=== PATIENT | female | born 1935 | race Caucasian/White ===

== ENCOUNTER 2020-08-06 15:41 | Outpatient (REF) | payer MEDICARE, SELFPAY | END 2020-08-06 15:42 | disposition home or self-care (01) | LOC: HO.LAB 15:41 | PROVIDERS: Visit Provider Internal Medicine | DX: R30.0 Dysuria (principal) | CPT/HCPCS: 87086 ==

== ENCOUNTER 2020-08-11 12:01 | Outpatient (REF) | payer MEDICARE, SELFPAY ==
[2020-08-11 14:04] LABS: MANUAL DIFF FLAG NO
[2020-08-11 14:10] LABS: Basophils Percent Auto 0.4 % (0-2); Eosinophils Absolute Auto 0.1 X10*3/uL (0.0-0.4); Eosinophils Percent Auto 1.5 % (0-4); Hematocrit 38.2 % (37-47); Hemoglobin 12.5 g/dl (12.0-16.0); Imm Gran Abs Auto 0.01 X10*3/uL (0.00-0.03); Imm Gran Pct Auto 0.2 % (0.0-0.4); Lymphocytes Absolute Auto 1.2 X10*3/uL (1.2-4.9); Lymphocytes Percent Auto 26.7 % (20-40); Mean Corpuscular HGB Conc 32.7 g/dl (31.0-35.0); Mean Corpuscular Hemoglobin 29.7 pg (27.0-33.0); Mean Corpuscular Volume 90.7 fL (80-98); Mean Platelet Volume 10.2 fL (9.4-12.3); Monocytes Absolute Auto 0.4 X10*3/uL (0.1-1.2); Monocytes Percent Auto 8.9 % (2-11); Neutrophils Absolute Auto 2.9 X10*3/uL (2.0-8.3); Neutrophils Percent Auto 62.3 % (45-73); Platelet Count 217 X10*3/uL (160-400); Red Blood Count 4.21 X10*6/uL (4.20-5.50); Red Cell Distribution Width 12.7 % (11.0-16.0); White Blood Count 4.6 X10*3/uL (4.8-10.8)
[2020-08-11 14:38] LABS: Alanine Aminotransferase 11 U/L (0-31); Albumin Level 4.1 g/dL (3.5-5.0); Alkaline Phosphatase 72 U/L (39-117); Anion Gap 11 (12-20); Aspartate Amino Transferase 17 U/L (5-31); Bilirubin Total 0.5 mg/dL (0.0-1.0); Blood Urea Nitrogen 11 mg/dL (9-16); Calcium 8.5 mg/dL (8.4-10.2); Carbon Dioxide 27 mmol/L (22-29); Chloride 110 mmol/L (96-108); Estimated Glomerular Filt Rate > 60; Glucose Random 78 mg/dL (60-115); Potassium 4.3 mmol/L (3.3-5.1); Sodium 144 mmol/L (135-145); Total Protein 6.8 g/dL (6.5-8.0)
[2020-08-11 15:00] LABS: TSH reflex Free T4 1.46 uIU/mL (0.32-4.0); Vitamin D 25-OH Total 58.3 ng/mL (>30)
[2020-08-13 21:26] LABS: Folate > 20.0 ng/mL (> or = 4.0); Vitamin B12 414 pg/mL (200-900)
== END 2020-08-11 12:02 | disposition home or self-care (01) ==
LOC: HO.HMGCLDS 12:01
PROVIDERS: PCP Internal Medicine; Visit Provider Internal Medicine
DX: M81.0 Age-related osteoporosis without current pathological fracture (principal); M51.36 Other intervertebral disc degeneration, lumbar region; E55.9 Vitamin D deficiency, unspecified; E51.9 Thiamine deficiency, unspecified; E53.8 Deficiency of other specified B group vitamins; F03.91 Unspecified dementia, unspecified severity, with behavioral disturbance
CPT/HCPCS: 36415; 80053; 82306; 82607; 82746; 84443; 85025

== ENCOUNTER 2020-09-02 21:03 | Emergency (ER) | payer MEDICARE, SELFPAY ==
--- NOTE | 2020-09-02 21:12 | PC.NURSE ---
PATIENT'S SON MARÍA KANG CALLED PRIOR TO PATIENT ARRIVAL TO LEAVE CONTACT NUMBERS. AND
[2020-09-02 21:18] VITALS: BP 134/80; PULSE 85; RESP 16; TEMP 36.4; O2SAT 94; BMI 18.6
[2020-09-02 22:00] VITALS: BP 144/71; PULSE 84; RESP 16; TEMP 37.2; O2SAT 98
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
[2020-09-02 22:33] LABS: MANUAL DIFF FLAG NO
[2020-09-02 22:34] LABS: Basophils Percent Auto 0.3 % (0-2); Eosinophils Absolute Auto 0.1 X10*3/uL (0.0-0.4); Eosinophils Percent Auto 1.1 % (0-4); Glucose Urine UA NEG (NEG); Hematocrit 38.1 % (37-47); Hemoglobin 12.6 g/dl (12.0-16.0); Imm Gran Abs Auto 0.02 X10*3/uL (0.00-0.03); Imm Gran Pct Auto 0.3 % (0.0-0.4); Leukocyte Esterase Urine 3+ (NEG); Lymphocytes Absolute Auto 1.3 X10*3/uL (1.2-4.9); Lymphocytes Percent Auto 20.6 % (20-40); Mean Corpuscular HGB Conc 33.1 g/dl (31.0-35.0); Mean Corpuscular Volume 90.7 fL (80-98); Mean Platelet Volume 9.9 fL (9.4-12.3); Monocytes Absolute Auto 0.6 X10*3/uL (0.1-1.2); Monocytes Percent Auto 9.7 % (2-11); Neutrophils Absolute Auto 4.3 X10*3/uL (2.0-8.3); Nitrite Urine POS (NEG); Platelet Count 186 X10*3/uL (160-400); Red Cell Distribution Width 12.5 % (11.0-16.0); Specific Gravity - Urine 1.015 (1.005-1.025); UACC Culture Trigger YES; Urine Blood 1+ (NEG); Urine Ketones 5 MG/DL (NEG); Urine Protein TRACE MG/DL (NEG-TRACE); White Blood Count 6.3 X10*3/uL (4.8-10.8)
[2020-09-02 22:35] LABS: Appearance Urine CLOUDY; Color Urine YELLOW
[2020-09-02 22:46] LABS: Bacteria Urine 2+ /LPF; Squamous Epithelial Cell Urine TRACE /LPF; WBC Urine TNTC /HPF (0-4)
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
[2020-09-02 23:04] LABS: Anion Gap 12 (12-20); Blood Urea Nitrogen 17 mg/dL (9-16); Calcium 8.8 mg/dL (8.4-10.2); Carbon Dioxide 28 mmol/L (22-29); Chloride 106 mmol/L (96-108); Creatinine Clr Calc Pharmacy 39.3; Estimated Glomerular Filt Rate 58; Glucose Random 106 mg/dL (60-115); Potassium 4.2 mmol/L (3.3-5.1); Sodium 142 mmol/L (135-145)
--- NOTE | 2020-09-02 23:15 | MHC.CM.ED ---
Pt family and facility would like pt to stay overnight and make a plan for pt to return to [facility] in the am. Family can be present then to aide in the transition. Dr. Sierra aware. Will order po antibiotics for UTI. Pt to remain overnight. Will d/c to [facility] in the am. Pt aware. CM to monitor for d/c needs.
--- NOTE | 2020-09-02 23:25 | PC.NURSE ---
md does not want lactic or cultures drawn, pt does not have fever/tachycardia/elevated wbc.
[2020-09-02] MEDS: cefTRIAXone sodium 1 GM in 0.9 % Sodium Chloride 50 ML IV (23:41)
--- NOTE | 2020-09-03 00:32 | MHC.CARE ---
CARE Team is consulted for evaluation after increased aggression and confusion at [facility], where pt resides on a locked dementia unit. CARE Team works in collaboration with Suzan RN from case management who has already spoken to facility and pt's son/HCP Alok. Prior to crisis assessment being initiated, CARE Team is informed by Dr. Sierra that pt has a UTI. CARE Team recommends that pt be fully treated for UTI before IPLOC is considered. Pts are typically not considered for [facility] psych placement or assessed for level of care prior to UTI being treated. Dr. Sierra agrees that pt should be d/c back to locked facility and treated for UTI. Dr. Sierra would like for pt to be d/c tonight. CARE Team speaks with Janice, enterprise resource planning consultant nurse from [facility], who is not in support of pt d/c tonight, as she requests time to coordinate a plan w/ pt's family, as pt has historically not been medication compliant and may need added supports. Janice does agree to have pt return tomorrow. CARE Team reaches out to son, Alok, who is happy to support pt's transition back to longterm, however, also requests that this happen in the morning. This is communicated to Suzan from and Dr. Sierra. Plan is for pt to remain in the ED tonight and case management to coordinate d/c back to SNF in the morning.
--- NOTE | 2020-09-03 01:43 | PC.NURSE ---
PT AMBULATORY TO BATHROOM WITH STEADY GAIT TWICE TONIGHT. PT CALM AND COOPERATIVE.
--- NOTE | 2020-09-03 03:43 | PC.NURSE ---
PLAN IS TO SEND PT BACK TO THE [facility] IN MORNING BY EMS. PT NEEDS ORAL ANTIBIOTICS FOR UTI.
[2020-09-03 04:31] VITALS: BP 121/65; PULSE 72; RESP 16; O2SAT 97
--- NOTE | 2020-09-03 08:06 | PC.NURSE ---
BRENDA NURSE AT [facility],
--- NOTE | 2020-09-03 08:18 | MHC.CM.ED ---
Patient remains in ER. Spoke with Janice at the [facility] telephone at [phone]. Patient can return to the facility if the son helps with transition and helps administer morning medication at the facility. Spoke with Alok via telephone at [phone]. He is agreeable to above plan and will be in the ER at 9am to pick remover his mother. Janice aware. Patient, Tanya THEODORE and Jamel PINA aware. Continue to monitor for d/c needs.
== END 2020-09-03 09:30 | disposition home or self-care (01) ==
PROVIDERS: Emergency Provider Emergency Medicine Emergency Medical Services; PCP Internal Medicine
DX: F03.90 Unspecified dementia, unspecified severity, without behavioral disturbance, psychotic disturbance, mood disturbance, and anxiety (principal); N39.0 Urinary tract infection, site not specified; Z87.891 Personal history of nicotine dependence; Z79.899 Other long term (current) drug therapy
CPT/HCPCS: 36415; 80048; 81001; 81003; 85025; 87086; 87088; 87186; 96360; 96361; 99284; J0696

== ENCOUNTER 2020-09-17 | Outpatient (REF) | payer MEDICARE, SELFPAY ==
[2020-09-18 14:10] LABS: Glucose Urine UA NEG (NEG); Leukocyte Esterase Urine NEG (NEG); Nitrite Urine NEG (NEG); Urine Blood NEG (NEG); Urine Ketones NEG (NEG); Urine Protein NEG (NEG-TRACE)
[2020-09-18 14:13] LABS: Appearance Urine CLEAR; Color Urine YELLOW
== END 2020-09-17 00:01 | disposition home or self-care (01) ==
LOC: HO.LNP
PROVIDERS: Visit Provider Internal Medicine
DX: R30.0 Dysuria (principal); Z87.440 Personal history of urinary (tract) infections
CPT/HCPCS: 81003

== ENCOUNTER 2020-09-18 10:48 | Outpatient (REF) | payer MEDICARE, SELFPAY | END 2020-09-18 10:49 | disposition home or self-care (01) | LOC: HO.HMGCLNP 10:48 | PROVIDERS: Visit Provider Internal Medicine | DX: Z13.89 Encounter for screening for other disorder (principal) ==

== ENCOUNTER 2020-10-26 18:12 | Emergency (ER) | payer MEDICARE, SELFPAY ==
[2020-10-26 18:23] VITALS: BP 130/90; PULSE 74; RESP 14; TEMP 36.4; O2SAT 97; BMI 16.5
--- NOTE | 2020-10-26 18:40 | ED_ITS ---
HPI - Fall General Chief Complaint: Fall Stated Complaint: DEMENTIA FALL Time Seen by Provider: 10/26/20 18:40 Source: patient and RN notes reviewed Mode of arrival: EMS History of Present Illness HPI Narrative: Patient with history of dementia came from assisted living place after mechanical fall unwitnessed patient said that she was walking very fast and fell no significant injuries able to ambulate denies any head injury alert oriented times 2-3 MD complaint: fall Related Data Home Medications Medication Instructions Recorded Confirmed alendronate 70 mg tablet 70 mg PO TH 04/20/20 09/09/20 cholecalciferol (vitamin D3) 1 cap PO DAILY 09/03/20 09/09/20 divalproex 125 mg tablet,delayed 125 mg PO BID tab 09/09/20 09/09/20 release lactobacillus combination no.8 3 3,000 mmu cells PO DAILY 09/09/20 09/09/20 billion cell capsule Previous Rx's Medication Instructions Recorded famotidine 40 mg tablet 40 mg PO DAILY 30 Days #30 tab 04/21/20 multivitamin 1 tab PO DAILY #30 tab 07/21/20 memantine 10 mg tablet 10 mg PO BID #180 tab 08/06/20 oxybutynin chloride 5 mg tablet 5 mg PO DAILY #30 tab 08/31/20 Allergies Allergy/AdvReac Type Severity Reaction Status Date / Time erythromycin base AdvReac Intermediate STOMACH Verified 04/21/20 14:59 [ERYTHROMYCIN BASE] UPSET Sulfa (Sulfonamide AdvReac Intermediate STOMACH Verified 04/21/20 14:59 Antibiotics) UPSET, GI [SULFA (SULFONAMIDE upset ANTIBIOTICS)] amoxicillin [AMOXICILLIN] AdvReac Unknown UNKNOWN, Verified 04/21/20 14:59 Nausea Review of Systems Review of Systems: Constitutional : No Weight loss, No Fever, No Chills ENT/Mouth : No sore throat, No Rhinorrhea Eyes: No Eye Pain, No Swelling Cardiovascular : No Chest Pain, no palpitations Respiratory : No Cough, No Sputum, no shortness of breath Gastrointestinal : no Nausea, No Vomiting, No Diarrhea, No abdominal Pain, no black stools Genitourinary : No Dysuria, No Urinary Frequency Musculoskeletal : No joint pain, No Myalgias, No Joint Swelling Skin : No Skin Lesions, No rash Neuro : No Weakness, No Numbness, No Dizziness, No Headache Psych : No Anxiety/Panic, No Depression Heme/Lymph: No Bruising, No Lymphadenopathy Endocrine : No Polyuria, No Polydipsia All other systems reviewed and are negative [facility] Past Medical History Medical History Chorea Dementia Dementia with behavioral disturbance Dysuria Heartburn symptom Hx of ovarian cancer Immunization refused Lumbar degenerative disc disease Osteoporosis Urinary incontinence Vitamin B1 deficiency Vitamin B12 deficiency Vitamin D deficiency Surgical History H/O partial thyroidectomy Hx of hysterectomy Family History Family History Brother Cancer of bone Social History Social History Alcohol intake: never Smoking Status: Former smoker Use of substances other than those prescribed or required for medical reasons: No Advance Directives: No Advance Directives Information Provided: Yes Physical Exam Vital Signs: Vital Signs: Last Vital Signs Temp 99.2 F 10/26/20 18:57 Pulse 96 10/26/20 18:57 Resp 18 10/26/20 18:57 BP 144/105 H 10/26/20 18:57 Pulse Ox 95 10/26/20 18:57 Body Mass Index 16.5 Appearance: Alert. Oriented X2. No acute distress. Eyes: PERRLA, No Nystagmus HEENT: Pharynx normal. Oral Mucosa moist atraumatic normocephalic Neck: Normal inspection. Neck supple. CVS: Normal heart rate and rhythm. Pulses normal. Respiratory: No respiratory distress. Equal air entry bilateral, no wheezin g/rales/rhonchi Abdomen: Soft and nontender. Bowel sounds are present, no mass palpable, no CVA tenderness Skin: Skin warm and dry. Normal skin color. Normal skin turgor. Extremities: No lower extremity edema. No calf tenderness , Neuro: Oriented X 3. No motor deficit. No sensory deficit.No cerebellar signs , cranial nerves II-XII intact MDM - Fall MDM Narrative Medical decision making narrative: Patient status post mechanical fall no loss of consciousness no seizures activity no significant injuries no head injury, ambulatory in the ER no significant injury noticed will discharge patient to assisted living place. Discharge Plan Discharge Clinical Impression: Fall Qualifiers: Encounter type: initial encounter Qualified Code(s): W19.XXXA - Unspecified fall, initial encounter Patient Disposition: Xfer SNF Instructions: Fall Prevention (ED) Additional Instructions: No significant injuries noticed Be careful next time you cane while ambulating Prescriptions: No Action multivitamin Tablet 1 tab PO DAILY Qty: 30 RF: 6 oxybutynin chloride 5 mg tablet 5 mg PO DAILY Qty: 30 RF: 1 cholecalciferol (vitamin D3) 50 mcg (2,000 unit) capsule 1 cap PO DAILY RF: 0 alendronate [Fosamax] 70 mg tablet 70 mg PO TH RF: 0 divalproex 125 mg tablet,delayed release (DR/EC) 125 mg PO BID RF: 0 Adult Probiotic 3 billion cell capsule 3,000 mmu cells PO DAILY RF: 0 memantine 10 mg tablet 10 mg PO BID Qty: 180 RF: 2 famotidine 40 mg tablet 40 mg PO DAILY 30 Days Qty: 30 RF: 2 Interventions: ED Discharge Assessment Last Done: 10/26/20 22:24 Discharge Date/Time: 10/26/20 22:25
[2020-10-26 18:57] VITALS: BP 144/105; PULSE 96; RESP 18; TEMP 37.3; O2SAT 95
--- NOTE | 2020-10-26 18:59 | PC.NURSE ---
Spoke w/ Sharri from [facility] reports pt had unwitnessed fall this am, denied injury and no injuries upon assessment. Around 430pm Sharri reported pt had unsteady gait, c/o generalized weakness, c/o heavy sensation in legs. Provider aware of information.
== END 2020-10-26 22:25 | disposition skilled nursing facility (03) ==
PROVIDERS: Emergency Provider Internal Medicine; PCP Internal Medicine
DX: S09.90XA Unspecified injury of head, initial encounter (principal); G44.309 Post-traumatic headache, unspecified, not intractable; F03.90 Unspecified dementia, unspecified severity, without behavioral disturbance, psychotic disturbance, mood disturbance, and anxiety; W19.XXXA Unspecified fall, initial encounter; Y93.9 Activity, unspecified; Y92.9 Unspecified place or not applicable; Y99.9 Unspecified external cause status; Z79.899 Other long term (current) drug therapy; Z87.891 Personal history of nicotine dependence
CPT/HCPCS: 99284

== ENCOUNTER 2020-11-23 16:03 | Emergency (ER) | payer MEDICARE, SELFPAY ==
--- NOTE | ~2020-11-23 | CT_ITS ---
EXAMINATION: CT HEAD WITHOUT CONTRAST CLINICAL INFORMATION: Status post fall. COMPARISON: Correlation MRI brain 01/16/2019 TECHNIQUE: Contiguous axial imaging was performed from the skull base to vertex without intravenous administration of contrast. This CT examination was performed using dose optimization techniques as appropriate, variously including the following: *Automated exposure control *Adjustment of mA and/or kV according to patient size (this includes techniques or standardized protocols for targeted exams where dose is matched to indication/reason for exam; i.e. extremities or head) *Use of iterative reconstruction technique DLP: 1006 mGy-cm FINDINGS: Motion artifact degrading images, limiting evaluation. There is no evidence of acute intracranial hemorrhage or territorial infarction. No abnormal mass effect or midline shift is seen. [id number] matter differentiation is well preserved. No extra-axial fluid collections are identified. There is moderate periventricular, deep white matter and subcortical hypodensities, suggestive of chronic microangiopathic changes. Cerebral volume loss with sulcal and ventricular prominence. The osseous structures and soft tissues are normal. The mastoid air cells and visualized portions of the paranasal sinuses are well aerated. CT/CT head/brain wo con IMPRESSION: No CT evidence of acute intracranial hemorrhage or edematous territorial infarction. Cerebral volume loss. Moderate periventricular and deep white matter hypodensities from chronic microangiopathic changes. Motion artifact degrading images, limiting evaluation.
[2020-11-23 16:07] VITALS: BP 126/82; PULSE 78; TEMP 36.7; O2SAT 99; BMI 21.9
--- NOTE | 2020-11-23 16:16 | ED_ITS ---
HPI - Fall General Chief Complaint: Fall Stated Complaint: fall Time Seen by Provider: 11/23/20 16:15 Source: patient and EMS Mode of arrival: EMS History of Present Illness HPI Narrative: Patient from skilled nursing with history of dementia came for mechanical fall unwitnessed says that patient was rushing and fell, patient denies any pain anywhere denies any headache no signs of any injury but patient is alert oriented x2. MD complaint: fall Related Data Home Medications Medication Instructions Recorded Confirmed alendronate 70 mg tablet 70 mg PO TH 04/20/20 11/03/20 cholecalciferol (vitamin D3) 1 cap PO DAILY 09/03/20 11/03/20 divalproex 125 mg tablet,delayed 125 mg PO BID tab 09/09/20 09/09/20 release lactobacillus combination no.8 3 3,000 mmu cells PO DAILY 09/09/20 09/09/20 billion cell capsule Previous Rx's Medication Instructions Recorded multivitamin 1 tab PO DAILY #30 tab 07/21/20 memantine 10 mg tablet 10 mg PO BID #180 tab 08/06/20 oxybutynin chloride 5 mg tablet 5 mg PO DAILY #30 tab 08/31/20 cefuroxime axetil 500 mg tablet 500 mg PO BID #14 tab 11/03/20 famotidine 40 mg tablet 40 mg PO DAILY 30 Days #30 tab 11/10/20 Allergies Allergy/AdvReac Type Severity Reaction Status Date / Time erythromycin base AdvReac Intermediate STOMACH Verified 11/03/20 14:02 [ERYTHROMYCIN BASE] UPSET Sulfa (Sulfonamide AdvReac Intermediate STOMACH Verified 11/03/20 14:02 Antibiotics) UPSET, GI [SULFA (SULFONAMIDE upset ANTIBIOTICS)] amoxicillin [AMOXICILLIN] AdvReac Unknown UNKNOWN, Verified 11/03/20 14:02 Nausea Review of Systems Review of Systems: Patient with dementia denies any significant complaints PMFSH Past Medical History Medical History Chorea Dementia with behavioral disturbance Dysuria Frequent falls Heartburn symptom Hx of ovarian cancer Immunization refused Lumbar degenerative disc disease Osteoporosis Unstable gait Urinary incontinence Vitamin B1 deficiency Vitamin B12 deficiency Vitamin D deficiency Surgical History H/O partial thyroidectomy Hx of hysterectomy Family History Family History Brother Cancer of bone Social History Social History Alcohol intake: never Advance Directives: Yes Advance Directives on File: Yes Advance Directives Date on File: 09/04/20 Physical Exam Vital Signs: Vital Signs: Last Vital Signs Temp 98.1 F 11/23/20 16:07 Body Mass Index 21.9 Appearance: Alert. Oriented X2. No acute distress. Eyes: PERRLA, No Nystagmus ENT: Pharynx normal. Oral Mucosa moist Neck: Normal inspection. Neck supple. CVS: Normal heart rate and rhythm. Pulses normal. Respiratory: No respiratory distress. Equal air entry bilateral, no wheezing/rales/rhonchi Abdomen: Soft and nontender. Bowel sounds are present, no mass palpable, no CVA tenderness Skin: Skin warm and dry. Normal skin color. Normal skin turgor. Extremities: No lower extremity edema. No calf tenderness Neuro: Oriented X 2. No motor deficit. No sensory deficit.No cerebellar signs , cranial nerves II-XII intact MDM - Fall MDM Narrative Medical decision making narrative: CT scan of the head is negative for any bleed. Patient ambulatory in the ER holding the hand and using walker. [id number] at bedside will discharge patient back to skilled nursing Discharge Plan Discharge Clinical Impression: Frequent falls Patient Disposition: Xfer LTC Transfer Details: To skilled nursing Instructions: Fall Prevention (ED) Additional Instructions: CT scan of the head is negative for any bleed, no other injuries noticed please use walker when you ambulate Prescriptions: No Action multivitamin Tablet 1 tab PO DAILY Qty: 30 RF: 6 oxybutynin chloride 5 mg tablet 5 mg PO DAILY Qty: 30 RF: 1 cefuroxime axetil 500 mg tablet 500 mg PO BID Qty: 14 RF: 0 famotidine 40 mg tablet 40 mg PO DAILY 30 Days Qty: 30 RF: 2 cholecalciferol (vitamin D3) 50 mcg (2,000 unit) capsule 1 cap PO DAILY RF: 0 alendronate [Fosamax] 70 mg tablet 70 mg PO TH RF: 0 divalproex 125 mg tablet,delayed release (DR/EC) 125 mg PO BID RF: 0 Adult Probiotic 3 billion cell capsule 3,000 mmu cells PO DAILY RF: 0 memantine 10 mg tablet 10 mg PO BID Qty: 180 RF: 2
== END 2020-11-23 18:46 ==
PROVIDERS: Emergency Provider Internal Medicine; PCP Internal Medicine
DX: S09.90XA Unspecified injury of head, initial encounter (principal); G44.309 Post-traumatic headache, unspecified, not intractable; W01.0XXA Fall on same level from slipping, tripping and stumbling without subsequent striking against object, initial encounter; Y93.9 Activity, unspecified; Y92.9 Unspecified place or not applicable; Y99.9 Unspecified external cause status; Z79.899 Other long term (current) drug therapy; Z91.81 History of falling
CPT/HCPCS: 70450; 99283

== ENCOUNTER 2021-02-24 14:03 | Outpatient (REF) | payer MEDICARE, SELFPAY ==
--- NOTE | ~2021-02-24 | FL_ITS ---
EXAMINATION: XR BARIUM SWALLOW CLINICAL INFORMATION: Dysphagia COMPARISON: None TECHNIQUE: Modified barium swallow was done under fluoroscopy. Patient lateral projection in presence of speech therapist. FINDINGS: Following oral administration of thin, thick barium and turkey coated with barium there is significant delay in the oral phase with premature spillage in the pharynx. There is mild retention of solid food in the valleculae which clears with thin liquids. No laryngeal penetration or aspiration seen. The piriform sinuses are symmetrical but empty.. FLUOROSCOPY TIME: 4.0 DOSE AREA PRODUCT: 2.508 uGy-m2 (microgray-meter squared) FL/FL barium swallow modified IMPRESSION: Moderate delay in the oral phase with premature spillage of food in the pharynx but no laryngeal penetration or aspiration seen. Correlate with speech therapy report.
--- NOTE | 2021-02-25 12:20 | MHC.SL.IMP ---
Date of Plan of Treatment: 02/24/21 Onset of Symptoms/Illness: 02/24/21 Date Treatment Started: 02/24/21 Admitting Diagnosis: Dementia Chorea Dysuria Frequent falls Heart burn History ovarian cancer Lumbar degenerative disc disease Osteoporosis Unstable gait Urinary incontinence Vitamin B1 deficiency Vitamin B12 deficiency Vitamin D deficiency Partial thyroidectomy Hysterectomy Primary Speech & Language Diagnosis: R13.12 Oropharyngeal Phase Dysphagia Secondary Speech & Language Diagnosis: R41.841 Cognitive communication disorder Reason for Today's Visit: 99286 Modified Barium Swallow Study Pre-evaluation Dietary Consistencies: Regular Pre-evaluation Liquid Consistency: Thin Pre-evaluation Medication Administration: Unknown Medical History: Modified Barium Swallow Study Fluoroscopic Evaluation of Swallowing Function CPT Code 18926 Evaluation Year: 2020 Reason for Study: Patient has not been eating. Referring Physician: Niki Bañuelos MD Evaluating Clinician: Bettie Corbin M.A., CCC-ENROLLMENT SPECIALIST Study Number: 1 Patient Name: Yoel Gee Status: Outpatient, Wheelchair Age: 85 Gender: Female MEDICAL HISTORY: Primary (admitting) Diagnosis: Dementia Year of Onset or Diagnosis: 2020 Comorbidities: Chorea Dysuria Frequent falls Heart burn History ovarian cancer Lumbar degenerative disc disease Osteoporosis Unstable gait Urinary incontinence Vitamin B1 deficiency Vitamin B12 deficiency Vitamin D deficiency Partial thyroidectomy Hysterectomy Current (pre-evaluation) Intake/Diet: Route: PO Diet Grade: Regular Liquid Consistencies: Thin Pre-Study Functional Oral Intake Scale (FOIS): 7- Total oral intake with no restrictions Pain: None reported at time of study Oral Motor Exam Mouth Occlusion: Normal Oral-Facial Teeth Characteristics: Intact/Normal Oral-Facial Smile (Lips) Description: Normal Tongue Size: Normal Tongue Frenum Length: Normal Tongue Excursion Description: Normal Tongue Movement Characteristics: Normal/Absent Is patient able to manage secretions?: Yes Food and Liquid Trials: Oral Impairment: Lip Closure: 0=No labial escape Oral Impairment: Tongue Control During Bolus Hold: 1=Escape to lateral buccal cavity/floor of mouth (FOM) Oral Impairment: Bolus Preparation/Mastication: 3=Minimal chewing/mashing with majority of bolus unchewed Oral Impairment: Bolus Transport/Lingual Motion: 4=Minimal to no tongue motion Oral Impairment: Oral Residue: 3=Majority of bolus remaining Oral Impairment:Initiation of Pharyngeal Swallow: 3=Bolus head in pyriforms Pharyngeal Impairment: Soft Palate Elevation: 0=No bolus between soft palate (SP)/pharyngeal wall (PW) Pharyngeal Impairment: Laryngeal Elevation: 1=Partial thyroid cartilage/arytenoids to epiglottic petiole movement Pharyngeal Impairment: Anterior Hyoid Excursion: 0=Complete anterior movement Pharyngeal Impairment: Epiglottic Movement: 0=Complete inversion Pharyngeal Impairment: Laryngeal Vestibular Closure:: 0=Complete: no air/contrast in laryngeal vestibule Pharyngeal Impairment: Pharyngeal Stripping Wave: 1=Present: diminished Pharyngeal Impairment: Pharyngeal Contraction: Did not test Pharyngeal Impairment: Pharyngoesophageal Segment Openin=Partial distention/partial duration: partial obstruction of flow Pharyngeal Impairment: Tongue Base (TB) Retraction: 4=No visible posterior motion of tongue base Pharyngeal Impairment: Pharyngeal Residue: 2=Collection of residue within or on pharyngeal structures Pharyngeal Impairment: Esophageal Clearance Upright Position: Did not test Impressions and Recommendations Clinical Observations: OBJECTIVE: Time-out: performed at 02:45 Evaluation Start: 02:30; Stop: 02:40 Patient Positioning: Seated 70-90 degrees Viewing Planes: LATERAL ONLY Contrast: MBSImP? Standardized Protocol using commercially prepared, standardized Barium viscosities, including: Varibar? THIN LIQUID (40% w/v, <15 cps) , 1/2 Shortbread Cookie (1 x1 x.25 ) MBSImP ID: [id number] MBSImP Results: Lip closure for intraoral bolus containment resulted in no labial escape. Tongue control during bolus hold allowed bolus escape to the lateral buccal cavity/floor of mouth. Bolus preparation and mastication was only minimal chewing/mashing, with the majority of the bolus unchewed. Bolus transport/lingual motion yielded only minimal to no tongue motion. Oral residue was the majority of the bolus. Initiation of the pharyngeal swallow occurred when the bolus head was in the pyriform sinuses. Soft palate elevation resulted in no bolus between the soft palate and the pharyngeal wall. Laryngeal elevation was decreased, with partial superior movement of the thyroid cartilage/partial approximation of the arytenoids to the epiglottic petiole. Anterior hyoid excursion demonstrated complete anterior movement. Epiglottic movement resulted in complete inversion. Laryngeal vestibular closure was complete, as indicated by no air or contrast within the laryngeal vestibule at the height of the swallow. Pharyngeal stripping wave was present, but diminished. Pharyngeal contraction could not be determined due to logistical reasons not related to physiologic impairment. Pharyngoesophageal segment opening demonstrated partial distension/partial duration, with partial obstruction of bolus flow. Tongue base retraction resulted in no visible posterior motion of the the tongue base. Pharyngeal residue was a collection of residue within or on pharyngeal structures. Esophageal clearance in the upright position could not be assessed due to logistical reasons not related to physiologic impairment. Oral Impairment Score: 14 Pharyngeal Impairment Score: 9 (absence of score, component 13) Esophageal Impairment Score: --- (absence of score, component 17) Laryngeal Penetration and Aspiration: Neither penetration nor aspiration was observed in today's study with Cookie, Thin. Structural Abnormalities Noted: Spurs noted by radiologist at C5-C7. Please refer to radiologist note. There appeared to be increased residue at this level. ASSESSMENT: This exam was conducted by a radiologist and speech language pathologist. Patient was seated in chair upright in optimal 90 degree position for lateral view only. Patient trialed the following liquid and solid consistencies: -5mL thin liquid barium -cup sip thin liquid barium -pureed solid (applesauce mixed with barium paste) -ground solid (chicken salad mixed with barium paste) More advanced solids were withheld for patient safety due to decreased awareness, impaired oral phase, and difficulty following commands. The patient's performance in today's study indicated impairment in swallowing as outlined below: ORAL PHASE: -Premature posterior escape of liquids during bolus hold in buccal cavity and floor of mouth -Premature posterior escape of solids prior to initiation of pharyngeal swallow trigger. Material collected on tongue base and in valleculae prior to initiation or pharyngeal swallow trigger. -Minimal chewing of bolus with solid unchewed pieces when eating ground solid -Repetitive posterior tongue movements. At times, minimal to no tongue movement seen with ground solid due to decreased awareness. -Majority of bolus remaining on tongue base and in valleculae -Delayed pharyngeal swallow trigger when bolus head reached pyriforms PHARYNGEAL PHASE: -Partial superior movement of thyroid cartilage -Diminished pharyngeal stripping wave -Partial distention/ partial duration/ partial obstruction of flow through PES -Minimal to no tongue base retraction -Collection of residue on tongue base in valleculae, and in pyriforms. No aspiration or penetration evident during this exam. Impaired oral and pharyngeal phasesn Mild pharyngeal retention with liquids, which cleared with double swallow. Mild to moderate oral and pharyngeal residue with pureed consistency. Patient followed command for double swallow after several repetitions, which reduced oral and pharyngeal residue with pureed consistency. Patient was given a bite of ground solid. Patient chewed momentarily and then appeared no longer aware of bolus despite cues. Patient was consistently reminded with verbal prompts and visual cues to chew her food. Minimal chewing with ground solid. Premature posterior escape of bolus onto tongue base and into valleculae prior to initiation of pharyngeal swallow trigger. Patient was cued several times verbally and with visual prompting to swallow again. Significantly delayed initiation of swallow with consistent cuing. Moderate retention in valleculae. Liquid wash and double swallow reduced residue. The following compensatory strategies have not been used until today's study, but when employed, improved swallowing function: Additional Swallow(s) per Bolus decreased Oral Residue, Pharyngeal Residue Liquid Intake Recommendation: Thin Liquid Intake Strategies: Small Sips Double Swallow Dietary Recommendations: Pureed (NDD1) Medication Administration: Crushed with Puree Compensatory Strategies Recommended: Sitting Upright (90 deg) Double Swallow Small Bites and Sips Alternate Liquids/Solids Rate of Ingestion Change Oral Check Supervision during eating and or drinking: Total Supervision (1:1) Recommended Treatments: Compens. Strategy Educat. Recommendation for Speech Therapy: Speech Therapy through [facility] Speech Therapy through Rehab Facility Text Comment: Intake Recommendations: Route: PO Diet Grade: Puree Liquid Consistencies: Thin Post-Study Functional Oral Intake Scale (FOIS): 5- Total oral intake of multiple consistencies requiring special preparation Recommend THIN liquids and PUREED (NDD1) solids due to impairments in oral phase and decreased awareness. Recommend pills to be CRUSHED in PUREE. Patient is encouraged to feed herself when possible and may need assistance with tray set up and throughout meals. At the very least, patient requires total supervision during meals to provide assistance as needed, to cue for safe swallow strategies, and to monitor for any s/s of aspiration. Following precautions apply: -sit upright 90 degree angle -small bites -small sips by teaspoon or cup -one sip at a time -alternate bite of food with sip of liquid -double swallow as needed -daily oral care routine Recommend speech therapy intervention for dysphagia at [facility]/ [facility] to provide further support to patient, family, and caregivers. Clinician - Supplemental, Miscellaneous Communication: It is important to note MBSS objective studies are snapshots in time and Patient function might vary with factors such as time of day or concomitant medical conditions. For this reason, the final treatment plan for this patient should rest with their medical care team. Additional recommendations should be considered with the totality of the Patient in mind. Thank for the opportunity to participate in the care of this patient. If you have any questions about the content of this report, please contact the [facility] at [facility]. Education: Education regarding findings from today's study and plans for therapy were provided to Patient and family/caregiver through Verbal Instruction. Research Spec Clinician/Clinical Fellow: No Supervisory Statement: N/A Speech Language Pathologist: Bettie Corbin M.A., CCC-ENROLLMENT SPECIALIST
== END 2021-02-24 14:04 | disposition home or self-care (01) ==
LOC: HO.XRAY 14:03
PROVIDERS: Visit Provider Internal Medicine
DX: R13.10 Dysphagia, unspecified (principal)
CPT/HCPCS: 74230; 92611

== ENCOUNTER 2021-03-10 17:33 | Emergency (ER) | payer MEDICARE, SELFPAY ==
--- NOTE | ~2021-03-10 | XR_ITS ---
EXAMINATION: XR CHEST CLINICAL INFORMATION: Unwitnessed fall. COMPARISON: None TECHNIQUE: 2 views of the chest were obtained. FINDINGS: The lungs are hyperinflated but clear. The heart size and pulmonary vascularity is normal. There is L2 compression fracture seen. XR/XR chest 2V IMPRESSION: Hyperinflated lungs without acute process.
--- NOTE | ~2021-03-10 | CT_ITS ---
EXAMINATION: CT BRAIN AND CT CERVICAL SPINE WITHOUT CONTRAST. CLINICAL INFORMATION: Fall, head injury. COMPARISON: CT brain 11/23/2020 TECHNIQUE: 5 minutes thin axial and reformatted 2 minutes thin sagittal and coronal images of brain were obtained without contrast. Subsequently 3 minutes thin axial and reformatted 2 minutes thin sagittal coronal images of cervical spine were obtained. DLP 1725. FINDINGS: Limited exam due to patient motion. Brain: There is no acute intra-axial, extra-axial bleed, masses or midline shift. There is no acute infarct in evolution. There is no edema. The lateral ventricles are symmetrical in size and configuration but moderately enlarged. Mild prominence of third and the fourth ventricle is noted as well. There is diffuse periventricular hypodensity in both cerebral hemispheres slightly more prominent in the right posterior parietal lobe deep white matter on axial image . Bone windows reveal no calvarial abnormality. Bilateral paranasal sinuses are well-aerated with mild mucoperiosteal thickening left ethmoid sinus. Cervical spine: There is patient motion during the exam. On sagittal images there is mild straightening of cervical lordosis. The vertebral heights and alignment is preserved. There is loss of C4-C5, C5-C6, C6-C7 and C7-T1 disc heights. There are osteophyte formations at this C1-C2 alignment. The craniovertebral junction and the C1-C2 alignment is normal. The prevertebral and paravertebral soft tissues are normal. The lung apices are clear CT/CT cervical spine wo con IMPRESSION: No acute intracranial process seen. 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 Mild straightening of cervical lordosis. No visible acute fracture, dislocation or subluxation seen. However the C-spine is limited due to patient motion artifact. There are degenerative disc changes. The prevertebral soft tissues are maintained normal.
[2021-03-10 18:06] VITALS: BP 128/87; PULSE 88; RESP 19; TEMP 36.6; O2SAT 98; BMI 18.8
[2021-03-10 18:16] VITALS: BP 128/87; PULSE 89
--- NOTE | 2021-03-10 18:21 | ECG_ITS ---
Test Reason : FALL Blood Pressure : / mmHG Vent. Rate : 077 BPM Atrial Rate : 077 BPM P-R Int : 156 ms QRS Dur : 056 ms QT Int : 386 ms P-R-T Axes : 093 044 083 degrees QTc Int : 436 ms Sinus rhythm with Premature atrial complexes Septal infarct , age undetermined Abnormal ECG When compared with ECG of 28-NOV-2019 19:32, Premature atrial complexes are now Present Referred By: Jaimie Campoverde Electronically Signed By:DOLORES ULRICH
[2021-03-10 18:23] VITALS: BP 128/87; PULSE 88; RESP 19; TEMP 36.6; O2SAT 98
--- NOTE | 2021-03-10 18:32 | ED.FALL ---
HPI - Fall General Chief Complaint: Fall Stated Complaint: fall Time Seen by Provider: 03/10/21 18:12 Source: patient and EMS Mode of arrival: EMS Limitations: altered mental status History of Present Illness HPI Narrative: 85 yo female coming from the [facility] with past medical history of dementia, osteoporosis, dysphagia here after unwitnessed fall. Found by staff. Per staff at baseline. NO AC therapy. Has hematoma to left side of head. Cervical collar in place. NO complaints. Related Data Home Medications Medication Instructions Recorded Confirmed divalproex 125 mg tablet,delayed 125 mg PO BID tab 09/09/20 01/01/21 release lactobacillus combination no.8 3 3,000 mmu cells PO DAILY 09/09/20 01/01/21 billion cell capsule (Adult Probiotic) Previous Rx's Medication Instructions Recorded multivitamin 1 tab PO DAILY #30 tab 07/21/20 memantine 10 mg tablet 10 mg PO BID #180 tab 08/06/20 cefuroxime axetil 500 mg tablet 500 mg PO BID #14 tab 11/03/20 famotidine 40 mg tablet 40 mg PO DAILY 30 Days #30 tab 11/10/20 ciprofloxacin HCl 250 mg tablet 250 mg PO BID #14 tab 01/01/21 (Cipro) cholecalciferol (vitamin D3) 50 2,000 unit PO DAILY #30 cap 01/08/21 mcg (2,000 unit) capsule alendronate 70 mg tablet 70 mg PO QWEEK 30 Days #5 ea 01/26/21 oxybutynin chloride 5 mg tablet 5 mg PO DAILY #30 tab 01/26/21 Allergies Allergy/AdvReac Type Severity Reaction Status Date / Time erythromycin base AdvReac Intermediate STOMACH Verified 01/01/21 16:12 [ERYTHROMYCIN BASE] UPSET Sulfa (Sulfonamide AdvReac Intermediate STOMACH Verified 01/01/21 16:12 Antibiotics) UPSET, GI [SULFA (SULFONAMIDE upset ANTIBIOTICS)] amoxicillin [AMOXICILLIN] AdvReac Unknown UNKNOWN, Verified 01/01/21 16:12 Nausea Review of Systems Review of Systems: Yes Unobtainable due to mental status Neurologic: Denies Abnormal speech present and Reports confusion Psychiatric: Psychiatric: Reports confusion PMFSH Past Medical History Attestation statement: The following information was validated with the patient. Source: old records reviewed and nursing notes reviewed Medical History Chorea Dementia with behavioral disturbance Dysphagia Dysuria Frequent falls Heartburn symptom Hx of ovarian cancer Immunization refused Lumbar degenerative disc disease Osteoporosis Unstable gait Urinary incontinence Vitamin B1 deficiency Vitamin B12 deficiency Vitamin D deficiency Surgical History H/O partial thyroidectomy Hx of hysterectomy Family History Family History Brother Cancer of bone Social History Social History Alcohol intake: never Advance Directives: Yes Advance Directives on File: Yes Advance Directives Date on File: 09/04/20 Physical Exam Vital Signs: Vital Signs: Last Vital Signs Temp 99 F 03/10/21 19:13 Pulse 74 03/10/21 19:13 Resp 18 03/10/21 19:13 BP 148/118 H 03/10/21 19:13 Pulse Ox 100 03/10/21 19:13 Body Mass Index 18.8 Const: General: cooperative, healthy appearing, comfortable, no acute distress and confusion Orientation/consciousness: confusion Limitations: altered mental status HENMT: Head: Yes normal to inspection Ears: hearing grossly normal bilaterally General nose exam: Normal external nose present Face and sinus: Yes normal facial exam Mouth: Normal oral and palatal mucosa present Throat: Yes posterior oropharynx normal Eyes: General: appearance normal, both eyes and all related structures Pupils: Equal, round and reactive pupils present Neck: Other: Cervical collar in place Neck: Yes normal visual inspection, Yes full ROM and Yes no lymphadenopathy Chest: Chest palpation & inspection: normal inspection of the chest Resp: Effort & Inspection: normal respiratory effort Auscultation: clear to auscultation bilaterally Cardio: Rate: regular rate Rhythm: regular rhythm Peripheral pulses: Peripheral pulses 2+ throughout GI: Inspection: Yes normal to inspection Palpation (GI): Soft to palpation and nontender Auscultation: normal bowel sounds Back/Spine/Pelvis: Thoracic/Lumbar Spine: thoracic and lumbar spine normal to inspection Skin: General skin exam: no rashes or lesions noted Neuro: General: moves all extremities, normal sensation to monofilament, confusion and Unable to assess gait Cranial nerves: Yes Equal, round and reactive pupils present, Yes Normal facial strength present and Yes Midline tongue present Cognition (Neuro): abnormal cognition Speech: No Abnormal speech present Gait exam (Neuro): Unable to assess gait Motor exam (neuro): 5/5 motor strength present throughout Sensory Exam: Normal double simultaneous stimulation for sensation Extrem: General: Yes normal to inspection, Yes no pedal edema and Yes no calf tenderness Course Course Course Narrative: 85 yo female here with complaints of unwitnessed fall. Unclear mechanism d/t dementia. 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 I discussed this with the son at the bedside(Alok Gee). He tells the patient has no history of the same. She does not have a shunt. I explained to him that this likely been there for some time and we did not have a previous CT scan to compare this to. He tells me that the patient has very advanced dementia. She is also DNR/DNI. I explained the treatment would be a NSY consult and likely shunt placement under anesthesia. In addition the patient would require transfer to a tertiary care center for this. The son defers all of the above. He would like the patient transferred back to the [facility] and kept comfortable. 2129-additional imaging negative. Labs and urine unremarkable. Plan for discharge home to [facility]. Son deferred ambulance and would like to bring her home by private car MDM - Fall Medical Records Attestation: I reviewed the patient's medical records. Lab Data Attestation: I reviewed the patient's lab results. Result diagrams: 03/10/21 19:22 03/10/21 19:22 Labs: Lab Results 03/10/21 03/10/21 03/10/21 Range/Units 19:22 19:22 19:22 WBC 5.4 (4.8-10.8) X10*3/uL RBC 3.81 L (4.20-5.50) X10*6/uL Hgb 11.9 L (12.0-16.0) g/dl Hct 35.3 L (37-47) % MCV 92.7 (80-98) fL MCH 31.2 (27.0-33.0) pg MCHC 33.7 (31.0-35.0) g/dl RDW 12.7 (11.0-16.0) % Plt Count 165 (160-400) X10*3/uL MPV 10.4 (9.4-12.3) fL Immature Gran % (Auto) 0.4 (0.0-0.4) % Neut % (Auto) 70.9 (45-73) % Lymph % (Auto) 19.6 L (20-40) % [place] % (Auto) 8.7 (2-11) % Eos % (Auto) 0.2 (0-4) % Baso % (Auto) 0.2 (0-2) % Lymph # (Auto) 1.1 L (1.2-4.9) X10*3/uL [place] # (Auto) 0.5 (0.1-1.2) X10*3/uL Eos # (Auto) 0.0 (0.0-0.4) X10*3/uL Baso # (Auto) 0.0 (0.0-0.2) X10*3/uL Abs Immat Gran (auto) 0.02 (0.00-0.03) X10*3/uL Absolute Neuts (auto) 3.9 (2.0-8.3) X10*3/uL Absolute Nucleated RBC 0.000 (0.0-0.012) X10*3/uL Nucleated RBC % (auto) 0.0 (0.0-0.2) /100WBC Sodium 144 (135-145) mmol/L Potassium 3.8 (3.3-5.1) mmol/L Chloride 109 H (96-108) mmol/L Carbon Dioxide 26 (22-29) mmol/L Anion Gap 13 (12-20) BUN 10 (9-16) mg/dL Creatinine 0.73 (0.5-1.4) mg/dL Estim Creat Clear Calc 50.2 Estimated GFR > 60 Random Glucose 96 (60-115) mg/dL Calcium 8.6 (8.4-10.2) mg/dL Troponin I High Sens < 3.5 (<3.5-17.0) ng/L Urine Color Urine Appearance Urine pH (5.0-8.0) Ur Specific [place] (1.005-1.025) Urine Protein (NEG-TRACE) MG/DL Urine Glucose (UA) (NEG) MG/DL Urine Ketones (NEG) MG/DL Urine Blood (NEG) Urine Nitrite (NEG) Ur Leukocyte Esterase (NEG) Urine RBC (0) /HPF Urine WBC (0-4) /HPF Ur Squamous Epith Cells /LPF Urine Bacteria /LPF Urine Mucus /LPF 03/10/21 Range/Units 20:19 WBC (4.8-10.8) X10*3/uL RBC (4.20-5.50) X10*6/uL Hgb (12.0-16.0) g/dl Hct (37-47) % MCV (80-98) fL MCH (27.0-33.0) pg MCHC (31.0-35.0) g/dl RDW (11.0-16.0) % Plt Count (160-400) X10*3/uL MPV (9.4-12.3) fL Immature Gran % (Auto) (0.0-0.4) % Neut % (Auto) (45-73) % Lymph % (Auto) (20-40) % [place] % (Auto) (2-11) % Eos % (Auto) (0-4) % Baso % (Auto) (0-2) % Lymph # (Auto) (1.2-4.9) X10*3/uL [place] # (Auto) (0.1-1.2) X10*3/uL Eos # (Auto) (0.0-0.4) X10*3/uL Baso # (Auto) (0.0-0.2) X10*3/uL Abs Immat Gran (auto) (0.00-0.03) X10*3/uL Absolute Neuts (auto) (2.0-8.3) X10*3/uL Absolute Nucleated RBC (0.0-0.012) X10*3/uL Nucleated RBC % (auto) (0.0-0.2) /100WBC Sodium (135-145) mmol/L Potassium (3.3-5.1) mmol/L Chloride (96-108) mmol/L Carbon Dioxide (22-29) mmol/L Anion Gap (12-20) BUN (9-16) mg/dL Creatinine (0.5-1.4) mg/dL Estim Creat Clear Calc Estimated GFR Random Glucose (60-115) mg/dL Calcium (8.4-10.2) mg/dL Troponin I High Sens (<3.5-17.0) ng/L Urine Color YELLOW Urine Appearance HAZY Urine pH 7.5 (5.0-8.0) Ur Specific [place] 1.020 (1.005-1.025) Urine Protein NEG (NEG-TRACE) MG/DL Urine Glucose (UA) NEG (NEG) MG/DL Urine Ketones 40 (NEG) MG/DL Urine Blood NEG (NEG) Urine Nitrite NEG (NEG) Ur Leukocyte Esterase TRACE H (NEG) Urine RBC 0 (0) /HPF Urine WBC 0-2 (0-4) /HPF Ur Squamous Epith Cells 1+ /LPF Urine Bacteria 2+ /LPF Urine Mucus 2+ /LPF Imaging Data CT head/neck : Attestation: I personally reviewed and interpreted this imaging study as follows: Radiologist's impression: IMPRESSION: No acute intracranial process seen. ? 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 ? Mild straightening of cervical lordosis. No visible acute fracture, dislocation or subluxation seen. However the C-spine is limited due to patient motion artifact. There are degenerative disc changes. The prevertebral soft tissues are maintained normal. Chest x-ray: Attestation: I personally reviewed and interpreted this imaging study as follows: Radiologist's impression: EXAMINATION: XR CHEST CLINICAL INFORMATION: Unwitnessed fall. COMPARISON: None TECHNIQUE: 2 views of the chest were obtained. FINDINGS: The lungs are hyperinflated but clear. The heart size and pulmonary vascularity is normal. There is L2 compression fracture seen. XR/XR chest 2V IMPRESSION: Hyperinflated lungs without acute process. ECG Data Attestation: I personally reviewed and interpreted this ECG as follows: ECG interpretation date: 03/10/21 ECG interpretation time: 21:22 Interpretation: Sinus rhythm with PACs, normal rate, normal Pr, normal QRS, no acute Discharge Plan Discharge Clinical Impression: Fall, Hydrocephalus Patient Disposition: Xfer [facility] Transfer Details: [facility] private car with son Instructions: Hydrocephalus (DC), Fall Prevention (ED) Additional Instructions: CT scan shows hydrocephalus/ after discussion with the family decision was made for no further intervention Prescriptions: No Action multivitamin Tablet 1 tab PO DAILY Qty: 30 RF: 6 cefuroxime axetil 500 mg tablet 500 mg PO BID Qty: 14 RF: 0 famotidine 40 mg tablet 40 mg PO DAILY 30 Days Qty: 30 RF: 2 cholecalciferol (vitamin D3) 50 mcg (2,000 unit) capsule 2,000 unit PO DAILY Qty: 30 RF: 2 alendronate 70 mg tablet 70 mg PO QWEEK 30 Days Qty: 5 RF: 11 oxybutynin chloride 5 mg tablet 5 mg PO DAILY Qty: 30 RF: 1 divalproex 125 mg tablet,delayed release (DR/EC) 125 mg PO BID RF: 0 Adult Probiotic 3 billion cell capsule 3,000 mmu cells PO DAILY RF: 0 memantine 10 mg tablet 10 mg PO BID Qty: 180 RF: 2 ciprofloxacin HCl [Cipro] 250 mg tablet 250 mg PO BID Qty: 14 RF: 0 Referrals: Niki Bañuelos MD [Primary Care Provider] - 2 days Interventions: ED Discharge Assessment Last Done: 03/10/21 21:53 Discharge Date/Time: 03/10/21 21:54
[2021-03-10 19:13] VITALS: BP 148/118; PULSE 74; RESP 18; TEMP 37.2; O2SAT 100
[2021-03-10 19:40] LABS: MANUAL DIFF FLAG NO
[2021-03-10 19:53] LABS: Basophils Percent Auto 0.2 % (0-2); Eosinophils Percent Auto 0.2 % (0-4); Hematocrit 35.3 % (37-47); Hemoglobin 11.9 g/dl (12.0-16.0); Imm Gran Abs Auto 0.02 X10*3/uL (0.00-0.03); Imm Gran Pct Auto 0.4 % (0.0-0.4); Lymphocytes Absolute Auto 1.1 X10*3/uL (1.2-4.9); Lymphocytes Percent Auto 19.6 % (20-40); Mean Corpuscular HGB Conc 33.7 g/dl (31.0-35.0); Mean Corpuscular Hemoglobin 31.2 pg (27.0-33.0); Mean Corpuscular Volume 92.7 fL (80-98); Mean Platelet Volume 10.4 fL (9.4-12.3); Monocytes Absolute Auto 0.5 X10*3/uL (0.1-1.2); Monocytes Percent Auto 8.7 % (2-11); Neutrophils Absolute Auto 3.9 X10*3/uL (2.0-8.3); Neutrophils Percent Auto 70.9 % (45-73); Platelet Count 165 X10*3/uL (160-400); Red Blood Count 3.81 X10*6/uL (4.20-5.50); Red Cell Distribution Width 12.7 % (11.0-16.0); White Blood Count 5.4 X10*3/uL (4.8-10.8)
[2021-03-10 20:00] LABS: Troponin-I High Sensitivity < 3.5 ng/L (<3.5-17.0)
[2021-03-10 20:02] LABS: Anion Gap 13 (12-20); Blood Urea Nitrogen 10 mg/dL (9-16); Calcium 8.6 mg/dL (8.4-10.2); Carbon Dioxide 26 mmol/L (22-29); Chloride 109 mmol/L (96-108); Creatinine Clr Calc Pharmacy 50.2; Estimated Glomerular Filt Rate > 60; Glucose Random 96 mg/dL (60-115); Potassium 3.8 mmol/L (3.3-5.1); Sodium 144 mmol/L (135-145)
[2021-03-10 20:33] LABS: Appearance Urine HAZY; Color Urine YELLOW; Glucose Urine UA NEG (NEG); Leukocyte Esterase Urine TRACE (NEG); Nitrite Urine NEG (NEG); PH 7.5 (5.0-8.0); UACC Culture Trigger YES; Urine Blood NEG (NEG); Urine Ketones 40 MG/DL (NEG); Urine Protein NEG (NEG-TRACE)
[2021-03-10 20:47] LABS: Mucus Urine 2+ /LPF; Squamous Epithelial Cell Urine 1+ /LPF
[2021-03-10 20:48] LABS: Bacteria Urine 2+ /LPF; RBC Urine 0 /HPF (0); WBC Urine 0-2 /HPF (0-4)
== END 2021-03-10 21:54 | disposition skilled nursing facility (03) ==
PROVIDERS: Nurse Practitioner Family; Emergency Provider Student in an Organized Health Care Education/Training Program; PCP Internal Medicine
DX: S09.90XA Unspecified injury of head, initial encounter (principal); G91.3 Post-traumatic hydrocephalus, unspecified; G44.309 Post-traumatic headache, unspecified, not intractable; M54.2 Cervicalgia; W01.0XXA Fall on same level from slipping, tripping and stumbling without subsequent striking against object, initial encounter; Y93.9 Activity, unspecified; Y92.9 Unspecified place or not applicable; Y99.9 Unspecified external cause status; Z79.899 Other long term (current) drug therapy
CPT/HCPCS: 36415; 70450; 71046; 72125; 80048; 81001; 84484; 85025; 87086; 93005; 99284

== ENCOUNTER 2021-03-24 15:27 | Emergency (ER) | payer MEDICARE, SELFPAY ==
--- NOTE | ~2021-03-24 | CT_ITS ---
EXAMINATION: CT HEAD WITHOUT CONTRAST CT CERVICAL SPINE WITHOUT CONTRAST CLINICAL INFORMATION: Fall. COMPARISON: CT head and cervical spine dated from 03/10/2021. TECHNIQUE: Contiguous axial imaging was performed from the skull base to vertex without intravenous administration of contrast. Contiguous axial imaging was performed from the upper chest through the skull base without intravenous administration of contrast. Coronal and sagittal reformats were obtained at the acquisition workstation. This CT examination was performed using dose optimization techniques as appropriate, variously including the following: *Automated exposure control *Adjustment of mA and/or kV according to patient size (this includes techniques or standardized protocols for targeted exams where dose is matched to indication/reason for exam; i.e. extremities or head) *Use of iterative reconstruction technique DLP: 296 mGy-cm FINDINGS: Head: There is no evidence of acute intracranial hemorrhage or edematous territorial infarction. Scattered hypoattenuation in the periventricular and deep white matter are consistent with moderate microangiopathy. There is encephalomalacia/gliosis the high right centrum semiovale (10:10) unchanged and likely sequela of an old infarct. Proportional prominence of the ventricles and sulcal spaces. No abnormal mass effect or midline shift. No extra-axial fluid collections. No acute soft tissue or osseous abnormalities. There is mucoperiosteal thickening of the inferior left maxillary sinus (47:15) with associated periapical lucencies. Cervical Spine: The atlantooccipital and atlantoaxial articulations remain well aligned. Straightening of the normal cervical lordosis. Mild grade 1 anterolisthesis of C4 on C5. Otherwise, there is anatomic alignment of the vertebral bodies and posterior elements. No evidence of acute fracture or subluxation. There is multilevel cervical spondylosis with disc space narrowing, subcortical sclerosis and osteophytes. These changes are more prominent from C4 through C7. There is multilevel bilateral facet arthropathy with near-complete fused facets bilaterally at C4-C5. There is no prevertebral soft tissue swelling. Minimal heterogeneity of the left lobe of the thyroid. Normal appearance of the soft tissues of the neck. The lung apices demonstrate irregular biapical pleural thickening. CT/CT cervical spine wo con IMPRESSION: No acute intracranial pathology. No acute cervical findings. Irregular pleural thickening in the lung apices is indeterminate and could be follow-up to ensure stability and rule out underlying lesions. Minimal heterogeneity of the left lobe of the thyroid could be evaluated further with a nonemergent thyroid ultrasound if clinically indicated. Periapical lucencies with thickening of the adjacent maxillary sinus on the left side, correlate clinically for odontogenic sinusitis and consider dental consultation.
--- NOTE | ~2021-03-24 | XR_ITS ---
EXAMINATION: XR SHOULDER, LEFT CLINICAL INFORMATION: Left shoulder pain after fall. COMPARISON: Chest radiograph dated from 03/10/2021. TECHNIQUE: One view of the left shoulder. FINDINGS: No evidence of acute fractures. No malalignment. 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 Left apical pleural thickening/scarring. No evidence of acutely displaced fractures in the left clavicle or visualized left-sided ribs. XR/XR shoulder LT 1V IMPRESSION: No acute fractures or malalignment. 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
[2021-03-24 15:57] VITALS: BP 118/91; PULSE 83; RESP 20; TEMP 36.9; O2SAT 92; BMI 20.9
[2021-03-24] MEDS: Haloperidol Lactate 5 MG/ML VIAL IM (16:50)
[2021-03-24 16:59] LABS: ABG Base Excess 3.9 mmol/L; ABG HCO3 24 mmol/L (22-26); ABG pCO2 25 mmHg (32-45); ABG pCO2 TC 25 mmHg (32-45); ABG pH 7.58 (7.35-7.45); ABG pH TC 7.58 (7.35-7.45); ABG pO2 119 mmHg (83-108); ABG pO2 TC 118 (83-108)
[2021-03-24 17:00] LABS: ABG Refer to POC result
[2021-03-24] MEDS: LORazepam 2 MG/ML VIAL IM (17:24)
--- NOTE | 2021-03-24 17:55 | ED.GENADULT ---
HPI - General Adult General Chief complaint: Fall Stated complaint: NECK/L SHOULDER/HEAD PAIN S/P FALL FROM WC Time Seen by Provider: 03/24/21 15:40 Source: patient Mode of arrival: ambulatory Limitations: no limitations History of Present Illness HPI narrative: Patient presents to ED for mechanical fall per EMS. Nurse informed them that patient stood up from her chair do a task to sit back see the chair slid back because he was not locked and patient fell backward and hit her head. EMS states intermediate states patient complained of left shoulder pain and posterior neck pain. Patient herself presently denies any pain and has complete range of motion of all extremities. Patient's history of vascular dementia, urinary continence, dysphagia, and unstable gait at baseline. Related Data Home Medications Medication Instructions Recorded Confirmed divalproex 125 mg tablet,delayed 125 mg PO BID tab 09/09/20 01/01/21 release lactobacillus combination no.8 3 3,000 mmu cells PO DAILY 09/09/20 01/01/21 billion cell capsule (Adult Probiotic) Previous Rx's Medication Instructions Recorded multivitamin 1 tab PO DAILY #30 tab 07/21/20 memantine 10 mg tablet 10 mg PO BID #180 tab 08/06/20 cefuroxime axetil 500 mg tablet 500 mg PO BID #14 tab 11/03/20 famotidine 40 mg tablet 40 mg PO DAILY 30 Days #30 tab 11/10/20 ciprofloxacin HCl 250 mg tablet 250 mg PO BID #14 tab 01/01/21 (Cipro) cholecalciferol (vitamin D3) 50 2,000 unit PO DAILY #30 cap 01/08/21 mcg (2,000 unit) capsule alendronate 70 mg tablet 70 mg PO QWEEK 30 Days #5 ea 01/26/21 oxybutynin chloride 5 mg tablet 5 mg PO DAILY #30 tab 01/26/21 Allergies Allergy/AdvReac Type Severity Reaction Status Date / Time erythromycin base AdvReac Intermediate STOMACH Verified 01/01/21 16:12 [ERYTHROMYCIN BASE] UPSET Sulfa (Sulfonamide AdvReac Intermediate STOMACH Verified 01/01/21 16:12 Antibiotics) UPSET, GI [SULFA (SULFONAMIDE upset ANTIBIOTICS)] amoxicillin [AMOXICILLIN] AdvReac Unknown UNKNOWN, Verified 01/01/21 16:12 Nausea Review of Systems Review of Systems: Yes all other systems are reviewed and are negative Constitutional: Constitutional: Reports as per HPI Eyes: Eyes: Reports as per HPI and Reports no additional eye complaints ENT: Reports system reviewed and no additional complaints, except as documented, Reports as per HPI and Reports neck pain Cardiovascular: Cardiovascular: Reports as per HPI and Reports no additional cardiovascular complaints Respiratory: Respiratory: Reports as per HPI and Reports no additional respiratory complaints Gastrointestinal: Gastrointestinal: Reports as per HPI and Reports no additional gastrointestinal complaints Genitourinary: Genitourinary: Reports no additional female genitourinary complaints and Reports as per HPI Musculoskeletal: Musculoskeletal: Reports no additional musculoskeletal complaints, Reports as per HPI, Reports arthralgias (left shoulder pain) and Reports neck pain PMFSH Past Medical History Medical History Chorea Dementia with behavioral disturbance Dysphagia Dysuria Frequent falls Heartburn symptom Hx of ovarian cancer Immunization refused Lumbar degenerative disc disease Osteoporosis Unstable gait Urinary incontinence Vitamin B1 deficiency Vitamin B12 deficiency Vitamin D deficiency Surgical History H/O partial thyroidectomy Hx of hysterectomy Family History Family History Brother Cancer of bone Social History Social History Alcohol intake: never Patient Tobacco Use Status: Former Tobacco user Smoked in Last 30 Days: Yes Use of substances other than those prescribed or required for medical reasons: Unable to respond Advance Directives: Yes Advance Directives on File: Yes Advance Directives Date on File: 09/04/20 Physical Exam Vital Signs: Vital Signs: Last Vital Signs Temp 98.4 F 03/24/21 15:57 Pulse 68 03/24/21 23:28 Resp 16 03/24/21 23:28 BP 117/69 03/24/21 23:28 Pulse Ox 100 03/24/21 23:28 Body Mass Index 20.9 Const: General: cooperative, healthy appearing, comfortable, no acute distress, well developed, alert, awake and Physically active HENMT: Head: Yes normal to inspection, Yes No palpable skull fracture present, Yes normocephalic and Yes atraumatic Ears: hearing grossly normal bilaterally, external ears normal, TM's normal bilaterally, EAC's normal, mastoids normal and no periauricular adenopathy Teeth and gingiva: dentition normal and gingiva normal Throat: Yes posterior oropharynx normal, Yes tonsils normal and Yes uvula midline Eyes: General: appearance normal, both eyes and all related structures Neck: Neck: Yes normal visual inspection, Yes full ROM, Yes no lymphadenopathy, Yes no meningeal signs, Yes trachea midline, Yes supple and No tender Chest: Chest palpation & inspection: normal inspection of the chest and normal palpation of entire chest wall Resp: Effort & Inspection: normal respiratory effort and able to speak in complete sentences Auscultation: clear to auscultation bilaterally Cardio: Jugular venous distension: no JVD Heart sounds: S1 normal heart sound present and S2 normal heart sound present GI: Inspection: Yes normal to inspection and No abdominal wall ecchymosis Palpation (GI): Soft to palpation, not firm, nontender, no guarding and not rigid : General: No CVA tenderness and Yes no CVA tenderness Back/Spine/Pelvis: Back: no CVA tenderness, No CVA tenderness and No back tenderness Skin: General skin exam: no rashes or lesions noted and elasticity normal Neuro: Other: Patient has vascular dementia at baseline. At baseline patient has Tourette's like random movement of whole body. Patient is at baseline mentally as per son. Negative for any drift. Negative facial droop. All extremities equal strength 5+. NIH Score General: no meningeal signs and CN's II-XI intact bilaterally Cranial nerves: Yes CN's II-XII intact bilaterally Extrem: Other: Patient has complete range of motion of all extremities. General: Yes normal to inspection and Yes full ROM Right upper extremity: normal to inspection Psych: Appearance: grossly normal, well kempt and not disheveled Course Course Course Narrative: History physical exam has mechanical fall. No indication for labs. Will do imaging of C-spine and neck and left shoulder x-ray. Patient move all extremities without any limitation Reevaluation(s) Reevaluation #1: Patient had to be given Haldol, Benadryl, and Ativan due to severe to read stick like movements of whole body. Spoke with intermediate states random tics/tremors of body is her baseline. Does patient keeps moving a lot it was hard to get O2 set her ABG was done which showed patient is not hypoxic. ABG was reviewed with Dr. Bahena. Patient sent for imaging waiting for results. Time: 18:09 Reevaluation #2: Patient head CT cervical spine came back normal. Shoulder x-ray negative. Patient will be discharged when alert and oriented. Patient sleeping due to being given Ativan, Benadryl, Haldol Time: 18:46 Reevaluation #3: Patient still sleeping from Ativan, Benadryl and Haldol. Patient will be discharged in the morning when she is more alert oriented x3. Patient's vital signs are stable. Patient O2 saturation on room air 100%. [facility] Time: 01:15 Medical Decision Making MDM Narrative Medical decision making narrative: Fall. Head injury Lab Data Labs: Lab Results 03/24/21 Range/Units 16:53 O2 Saturation 99.0 % ABG pH at Pt Temp 7.58 H (7.35-7.45) ABG pH (Temp Correct) 7.58 H (7.35-7.45) ABG pCO2 at Pt Temp 25 L (32-45) mmHg ABG pCO2 (Temp Corrct 25 L (32-45) mmHg ABG pO2 at Pt Temp 119 H (83-108) mmHg ABG pO2 (Temp Correct 118 H (83-108) ABG HCO3 24 (22-26) mmol/L ABG Base Excess (Actual) 3.9 mmol/L Discharge Plan Discharge Clinical Impression: Head injury, Fall Patient Disposition: Home, Self-Care Instructions: Head Injury (ED), Fall Prevention (ED) Additional Instructions: Return to the ED immediately nausea, vomiting, chest pain, shortness of breath, headache, vomiting blood, rectal bleeding, coughing up blood, abdominal pain, inability to move extremities, or any other concerning symptoms. Please trauma primary care provider. All images came back normal. Prescriptions: No Action multivitamin Tablet 1 tab PO DAILY Qty: 30 RF: 6 cefuroxime axetil 500 mg tablet 500 mg PO BID Qty: 14 RF: 0 famotidine 40 mg tablet 40 mg PO DAILY 30 Days Qty: 30 RF: 2 cholecalciferol (vitamin D3) 50 mcg (2,000 unit) capsule 2,000 unit PO DAILY Qty: 30 RF: 2 alendronate 70 mg tablet 70 mg PO QWEEK 30 Days Qty: 5 RF: 11 oxybutynin chloride 5 mg tablet 5 mg PO DAILY Qty: 30 RF: 1 divalproex 125 mg tablet,delayed release (DR/EC) 125 mg PO BID RF: 0 Adult Probiotic 3 billion cell capsule 3,000 mmu cells PO DAILY RF: 0 memantine 10 mg tablet 10 mg PO BID Qty: 180 RF: 2 ciprofloxacin HCl [Cipro] 250 mg tablet 250 mg PO BID Qty: 14 RF: 0 Print Language: Ethiopian
[2021-03-24 18:56] VITALS: BP 94/53; PULSE 78; RESP 14; O2SAT 96
[2021-03-24 20:55] VITALS: BP 107/68; PULSE 77; RESP 15; O2SAT 99
[2021-03-24 22:00] VITALS: BP 112/59; PULSE 70; RESP 16; O2SAT 98
[2021-03-24 23:28] VITALS: BP 117/69; PULSE 68; RESP 16; O2SAT 100
[2021-03-25] VITALS (8 sets, daily range): BP systolic 100–129; BP diastolic 52–94; PULSE 66–77; RESP 12–16; TEMP 36.3; O2SAT 94–100
--- NOTE | 2021-03-25 00:13 | PC.NURSE ---
the [facility] was called and verified that the pt is in a assisted living facility, and that someone will be waiting for her. there will not be a rn present per Delores who I gave report to.. Delores has been made aware that the pt is very drowsy due to the medications she received.
--- NOTE | 2021-03-25 08:44 | PC.NURSE ---
Assumed care of patient. Pt is sleeping and appears to be resting comfortably at this time. pt was medicated last night for imaging and continues to be drowsy. Pt will ultimately be discharged this morning when it is safe to do so.
--- NOTE | 2021-03-25 10:12 | PHA.MEDREC ---
Pharmacy Consult ? Medication Reconciliation Pharmacy has completed the medication reconciliation. There are no remarkable issues for provider's attention. Patient came from [facility] with a medication list. Marisa Joseph, IsabelaD
--- NOTE | 2021-03-25 15:08 | PC.NURSE ---
Pt is now arousable and is drinking juice and is able to tolerate PO intake. Case management is booking an ambulance to go back to the memory care unit where patient is a resident.
== END 2021-03-25 18:16 | disposition home or self-care (01) ==
PROVIDERS: Physician Assistant; Emergency Provider Internal Medicine; PCP Internal Medicine
DX: S09.90XA Unspecified injury of head, initial encounter (principal); M25.512 Pain in left shoulder; F03.90 Unspecified dementia, unspecified severity, without behavioral disturbance, psychotic disturbance, mood disturbance, and anxiety; W18.30XA Fall on same level, unspecified, initial encounter; Y93.9 Activity, unspecified; Y92.9 Unspecified place or not applicable; Y99.9 Unspecified external cause status
CPT/HCPCS: 70450; 72125; 73020; 82803; 96372; 99285; J2060

== ENCOUNTER 2021-03-27 09:07 | Emergency (ER) | payer MEDICARE, SELFPAY ==
[2021-03-27] VITALS (8 sets, daily range): BP systolic 110–159; BP diastolic 46–78; PULSE 75–90; RESP 14–16; TEMP 36.7; O2SAT 90–98; BMI 19.0
--- NOTE | ~2021-03-27 | CT_ITS ---
EXAMINATION: CT CERVICAL SPINE WITHOUT CONTRAST CLINICAL INFORMATION: Neck injury. COMPARISON: Previous cervical spine CT 03/24/2021 and 03/10/2021 TECHNIQUE: Axial images through the cervical spine without contrast. Sagittal and coronal reconstructions on the technologist workstation were performed. This CT examination was performed using dose optimization techniques as appropriate, variously including the following: *Automated exposure control *Adjustment of mA and/or kV according to patient size (this includes techniques or standardized protocols for targeted exams where dose is matched to indication/reason for exam; i.e. extremities or head) *Use of iterative reconstruction technique DLP: 189 mGy-cm FINDINGS: Bone alignment is normal. No fracture or dislocation is seen. There is multilevel degenerative spondylosis from C3-C4 to C6-C7. There is degenerative disc disease from C3 C4-C5 to C6-C7. There is bilateral multilevel facet arthritis. There are degenerative changes at the C1 dens articulation. Prevertebral soft tissues are normal. There is biapical pleural and parenchymal scarring that is stable. CT/CT cervical spine wo con IMPRESSION: Degenerative changes. No fracture or dislocation seen.
--- NOTE | ~2021-03-27 | XR_ITS ---
EXAMINATION: XR CHEST CLINICAL INFORMATION: Cough COMPARISON: Previous chest x-ray most recent February 2021 TECHNIQUE: Frontal view of the chest was obtained. FINDINGS: The cardiac and mediastinal contours are stable. The lungs are clear. There is no pleural effusion or pneumothorax. There are degenerative changes of the spine. XR/XR chest 1V IMPRESSION: No evidence for acute disease in the chest.
--- NOTE | ~2021-03-27 | CT_ITS ---
EXAMINATION: CT HEAD WITHOUT CONTRAST CLINICAL INFORMATION: Head injury COMPARISON: Previous head CT 03/24/2021 TECHNIQUE: Contiguous axial imaging was performed from the skull base to vertex without intravenous administration of contrast. This CT examination was performed using dose optimization techniques as appropriate, variously including the following: *Automated exposure control *Adjustment of mA and/or kV according to patient size (this includes techniques or standardized protocols for targeted exams where dose is matched to indication/reason for exam; i.e. extremities or head) *Use of iterative reconstruction technique DLP: 631 mGy-cm FINDINGS: There is no evidence of an extra-axial collection. There is no evidence of intra-axial or extra-axial hemorrhage. The ventricles and extra-axial CSF spaces are prominent suggestive of generalized atrophy. There is nonspecific periventricular white matter disease. 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 No mass, mass effect or acute infarct is seen. Review at bone windows is normal and no skull fracture is seen. CT/CT head/brain wo con IMPRESSION: No acute findings. 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
--- NOTE | 2021-03-27 09:24 | ECG_ITS ---
Test Reason : FALL Blood Pressure : / mmHG Vent. Rate : 078 BPM Atrial Rate : 078 BPM P-R Int : 142 ms QRS Dur : 086 ms QT Int : 404 ms P-R-T Axes : 070 055 062 degrees QTc Int : 460 ms Normal sinus rhythm RSR' or QR pattern in V1 suggests right ventricular conduction delay Nonspecific T wave abnormality Abnormal ECG When compared with ECG of 10-MAR-2021 21:22, Premature atrial complexes are no longer Present No significant changes seen Referred By: Britney Sierra Electronically Signed By:SUMANTH GUY MD
--- NOTE | 2021-03-27 09:27 | ED.FALL ---
HPI - Fall General Chief Complaint: Fall Stated Complaint: UNWITNESSED FALL, PT STS HIT HEAD FROM SNF Time Seen by Provider: 03/27/21 09:15 History of Present Illness HPI Narrative: Patient 85-year-old female status post fall in a dementia unit. Family noticed increasing fall. Patient has no fever no chills no cough no congestion. Claims she slipped. Answers simple question has no complaints. Patient from dementia unit. Not on blood thinners. Related Data Home Medications Medication Instructions Recorded Confirmed divalproex 125 mg tablet,delayed 125 mg PO BID tab 09/09/20 03/25/21 release alendronate 70 mg tablet 70 mg PO TH 03/25/21 03/25/21 quetiapine 25 mg tablet 12.5 mg PO BEDTIME 03/25/21 03/25/21 Previous Rx's Medication Instructions Recorded multivitamin 1 tab PO DAILY #30 tab 07/21/20 memantine 10 mg tablet 10 mg PO BID #180 tab 08/06/20 famotidine 40 mg tablet 40 mg PO DAILY 30 Days #30 tab 11/10/20 cholecalciferol (vitamin D3) 50 2,000 unit PO DAILY #30 cap 01/08/21 mcg (2,000 unit) capsule oxybutynin chloride 5 mg tablet 5 mg PO DAILY #30 tab 01/26/21 Allergies Allergy/AdvReac Type Severity Reaction Status Date / Time erythromycin base AdvReac Intermediate STOMACH Verified 01/01/21 16:12 [ERYTHROMYCIN BASE] UPSET Sulfa (Sulfonamide AdvReac Intermediate STOMACH Verified 01/01/21 16:12 Antibiotics) UPSET, GI [SULFA (SULFONAMIDE upset ANTIBIOTICS)] amoxicillin [AMOXICILLIN] AdvReac Unknown UNKNOWN, Verified 01/01/21 16:12 Nausea Review of Systems Review of Systems: No fever no chills no chest pain or shortness of breath no nausea no vomiting. Yes all other systems are reviewed and are negative PMFSH Past Medical History Attestation statement: The following information was validated with the patient. Medical History Chorea Dementia with behavioral disturbance Dysphagia Dysuria Frequent falls Heartburn symptom Hx of ovarian cancer Immunization refused Lumbar degenerative disc disease Osteoporosis Unstable gait Urinary incontinence Vitamin B1 deficiency Vitamin B12 deficiency Vitamin D deficiency Surgical History H/O partial thyroidectomy Hx of hysterectomy Family History Family History Brother Cancer of bone Social History Social History Alcohol intake: never Patient Tobacco Use Status: Former Tobacco user Use of substances other than those prescribed or required for medical reasons: No Advance Directives: Yes Advance Directives on File: Yes Advance Directives Date on File: 11/24/20 Physical Exam Vital Signs: Vital Signs: Last Vital Signs Temp 98.1 F 03/27/21 09:14 Pulse 81 03/27/21 13:38 Resp 16 03/27/21 11:26 BP 159/63 H 03/27/21 13:38 Pulse Ox 93 03/27/21 13:38 Body Mass Index 19.0 Appearance: Alert. Oriented X3. No acute distress. Eyes: Pupils equal, round and reactive to light. ENT: Pharynx normal. Neck: Normal inspection. Neck supple. No lymph nodes noted. No crepitus CVS: Normal heart rate and rhythm. Pulses normal. Normal S1 and S2 Respiratory: No respiratory distress. Breath sounds normal. No Wheezing. No rales Abdomen: Soft and nontender. No rigidity. No distention. good BS x4 Skin: Skin warm and dry. Normal skin color. Normal skin turgor. Extremities: No lower extremity edema. Neurovascular intact to all extremities. No Lacerations. No Rash Neuro: Oriented X 3. No motor deficit. No sensory deficit. Moving all extermities. No slurred speech MDM - Fall MDM Narrative Medical decision making narrative: Patient has frequent falls. CT scan of the head was grossly negative for any acute evidence of bleeding. Patient's electrolytes his baseline. White count is 5.2. However patient's urine was infected. Positive nitrate positive bacteria. Will start patient on Rocephin. Will discuss the case with the hospitalist team. Case discussed with hospitalist team. Willing to accept patient tomorrow by noon if no nursing homes willing to accept patient. Patient given a dose of Rocephin here in the emergency department. Patient's case discussed with Dr. Kramer from the hospitalist team who agrees to plan. Lab Data Result diagrams: 03/27/21 09:52 03/27/21 09:52 Labs: Lab Results 03/27/21 03/27/21 03/27/21 Range/Units 09:52 09:52 09:52 WBC 5.2 (4.8-10.8) X10*3/uL RBC 3.71 L (4.20-5.50) X10*6/uL Hgb 11.6 L (12.0-16.0) g/dl Hct 34.2 L (37-47) % MCV 92.2 (80-98) fL MCH 31.3 (27.0-33.0) pg MCHC 33.9 (31.0-35.0) g/dl RDW 12.6 (11.0-16.0) % Plt Count 188 (160-400) X10*3/uL MPV 9.2 L (9.4-12.3) fL Immature Gran % (Auto) 0.6 H (0.0-0.4) % Neut % (Auto) 67.0 (45-73) % Lymph % (Auto) 22.2 (20-40) % [place] % (Auto) 9.2 (2-11) % Eos % (Auto) 0.6 (0-4) % Baso % (Auto) 0.4 (0-2) % Lymph # (Auto) 1.2 (1.2-4.9) X10*3/uL [place] # (Auto) 0.5 (0.1-1.2) X10*3/uL Eos # (Auto) 0.0 (0.0-0.4) X10*3/uL Baso # (Auto) 0.0 (0.0-0.2) X10*3/uL Abs Immat Gran (auto) 0.03 (0.00-0.03) X10*3/uL Absolute Neuts (auto) 3.5 (2.0-8.3) X10*3/uL Absolute Nucleated RBC 0.000 (0.0-0.012) X10*3/uL Nucleated RBC % (auto) 0.0 (0.0-0.2) /100WBC Sodium 145 (135-145) mmol/L Potassium 4.1 (3.3-5.1) mmol/L Chloride 109 H (96-108) mmol/L Carbon Dioxide 28 (22-29) mmol/L Anion Gap 12 (12-20) BUN 14 (9-16) mg/dL Creatinine 0.84 (0.5-1.4) mg/dL Estim Creat Clear Calc 35.3 Estimated GFR > 60 Random Glucose 91 (60-115) mg/dL Calcium 8.8 (8.4-10.2) mg/dL Troponin I High Sens 5.5 D (<3.5-17.0) ng/L Urine Color Urine Appearance Urine pH (5.0-8.0) Ur Specific [place] (1.005-1.025) Urine Protein (NEG-TRACE) MG/DL Urine Glucose (UA) (NEG) MG/DL Urine Ketones (NEG) MG/DL Urine Blood (NEG) Urine Nitrite (NEG) Ur Leukocyte Esterase (NEG) Urine RBC (0) /HPF Urine WBC (0-4) /HPF Ur Squamous Epith Cells Calcium Oxalate Crystal /LPF Amorphous Sediment /LPF Urine Bacteria /LPF 03/27/21 Range/Units 12:07 WBC (4.8-10.8) X10*3/uL RBC (4.20-5.50) X10*6/uL Hgb (12.0-16.0) g/dl Hct (37-47) % MCV (80-98) fL MCH (27.0-33.0) pg MCHC (31.0-35.0) g/dl RDW (11.0-16.0) % Plt Count (160-400) X10*3/uL MPV (9.4-12.3) fL Immature Gran % (Auto) (0.0-0.4) % Neut % (Auto) (45-73) % Lymph % (Auto) (20-40) % [place] % (Auto) (2-11) % Eos % (Auto) (0-4) % Baso % (Auto) (0-2) % Lymph # (Auto) (1.2-4.9) X10*3/uL [place] # (Auto) (0.1-1.2) X10*3/uL Eos # (Auto) (0.0-0.4) X10*3/uL Baso # (Auto) (0.0-0.2) X10*3/uL Abs Immat Gran (auto) (0.00-0.03) X10*3/uL Absolute Neuts (auto) (2.0-8.3) X10*3/uL Absolute Nucleated RBC (0.0-0.012) X10*3/uL Nucleated RBC % (auto) (0.0-0.2) /100WBC Sodium (135-145) mmol/L Potassium (3.3-5.1) mmol/L Chloride (96-108) mmol/L Carbon Dioxide (22-29) mmol/L Anion Gap (12-20) BUN (9-16) mg/dL Creatinine (0.5-1.4) mg/dL Estim Creat Clear Calc Estimated GFR Random Glucose (60-115) mg/dL Calcium (8.4-10.2) mg/dL Troponin I High Sens (<3.5-17.0) ng/L Urine Color YELLOW Urine Appearance CLOUDY Urine pH 7.5 (5.0-8.0) Ur Specific [place] 1.020 (1.005-1.025) Urine Protein 1+ H (NEG-TRACE) MG/DL Urine Glucose (UA) NEG (NEG) MG/DL Urine Ketones 40 (NEG) MG/DL Urine Blood NEG (NEG) Urine Nitrite POS H (NEG) Ur Leukocyte Esterase TRACE H (NEG) Urine RBC 0 (0) /HPF Urine WBC 1-4 (0-4) /HPF Ur Squamous Epith Cells Not Reportable Calcium Oxalate Crystal TRACE /LPF Amorphous Sediment 3+ /LPF Urine Bacteria 3+ /LPF Discharge Plan Discharge Clinical Impression: Urinary tract infection Patient Disposition: Admitted As Inpatient
--- NOTE | 2021-03-27 09:39 | PC.NURSE ---
Pt alert, oriented x 2. Daughter in law at bedside. Pt denies pain. Recently here for fall and falling frequently at SNF. Mentating at baseline per family member. NSR on tele. Skin pwd.
[2021-03-27 09:56] LABS: MANUAL DIFF FLAG NO
[2021-03-27 10:00] LABS: Basophils Percent Auto 0.4 % (0-2); Eosinophils Percent Auto 0.6 % (0-4); Hematocrit 34.2 % (37-47); Hemoglobin 11.6 g/dl (12.0-16.0); Imm Gran Abs Auto 0.03 X10*3/uL (0.00-0.03); Imm Gran Pct Auto 0.6 % (0.0-0.4); Lymphocytes Absolute Auto 1.2 X10*3/uL (1.2-4.9); Lymphocytes Percent Auto 22.2 % (20-40); Mean Corpuscular HGB Conc 33.9 g/dl (31.0-35.0); Mean Corpuscular Hemoglobin 31.3 pg (27.0-33.0); Mean Corpuscular Volume 92.2 fL (80-98); Mean Platelet Volume 9.2 fL (9.4-12.3); Monocytes Absolute Auto 0.5 X10*3/uL (0.1-1.2); Monocytes Percent Auto 9.2 % (2-11); Neutrophils Absolute Auto 3.5 X10*3/uL (2.0-8.3); Platelet Count 188 X10*3/uL (160-400); Red Blood Count 3.71 X10*6/uL (4.20-5.50); Red Cell Distribution Width 12.6 % (11.0-16.0); White Blood Count 5.2 X10*3/uL (4.8-10.8)
--- NOTE | 2021-03-27 10:11 | PC.NURSE ---
Addendum entered by Liz Brian 03/27/21 10:32: other neuros are intact Original Note: Pt noted with ?left sided droop, daughter in law states new since . Left eye remains closed, baseline per family for pt. Dr Sierra aware. Off unit in [place] at this time
[2021-03-27 10:13] LABS: Anion Gap 12 (12-20); Blood Urea Nitrogen 14 mg/dL (9-16); Calcium 8.8 mg/dL (8.4-10.2); Carbon Dioxide 28 mmol/L (22-29); Chloride 109 mmol/L (96-108); Creatinine Clr Calc Pharmacy 35.3; Estimated Glomerular Filt Rate > 60; Glucose Random 91 mg/dL (60-115); Potassium 4.1 mmol/L (3.3-5.1); Sodium 145 mmol/L (135-145)
[2021-03-27 10:19] LABS: Troponin-I High Sensitivity 5.5 ng/L (<3.5-17.0)
--- NOTE | 2021-03-27 11:26 | PC.NURSE ---
Case management at bedside at this time speaking with family regarding placement options. Pt to be straight cathed for urine spec and awaits physical therapy evaluation
[2021-03-27 12:15] LABS: Appearance Urine CLOUDY; Color Urine YELLOW; Glucose Urine UA NEG (NEG); Leukocyte Esterase Urine TRACE (NEG); Nitrite Urine POS (NEG); PH 7.5 (5.0-8.0); UACC Culture Trigger YES; Urine Blood NEG (NEG); Urine Ketones 40 MG/DL (NEG); Urine Protein 1+ MG/DL (NEG-TRACE)
[2021-03-27 12:27] LABS: Amorphous Sediment Urine 3+ /LPF; RBC Urine 0 /HPF (0)
[2021-03-27 12:28] LABS: Bacteria Urine 3+ /LPF; Calcium Oxalate Crystals Urine TRACE /LPF
--- NOTE | 2021-03-27 13:53 | PC.NURSE ---
SEEN BY PHYSICAL THERAPY @ 1300
--- NOTE | 2021-03-27 14:18 | MHC.CM.ED ---
this interview was conducted c daughter in law at bedside, mumtaz , ph: [phone]. pt is from memory impaired unit at the [facility] in [place]. pt has been falling recently . she is mostly in a wc at baseline but falls when she tries to stand out of her wc or transfers to and from unsupervised. per mumtaz patient is in need of more supports and would like [facility] to [facility] [place] a STR placement in [facility] in [place] for which refs were made per her request. this will also buy the family time to make arrangements at the [facility]. PT did see patient and recommend LTC, not STR. we will see how this plays in getting pt an approp. bed. lastly, covid vaccination dates for patient are july 03 and august 03, [employer]. the patient son is the HCP which they have a copy of and have been asked to bring in. dc plan is to snf. cm to cont. to follow.
--- NOTE | 2021-03-27 14:42 | MHC.CM.ED ---
this interview was conducted c daughter in law at bedside, mumtaz , ph: [phone]. pt is from memory impaired unit at the [facility] in [place]. pt has been falling recently . she is mostly in a wc at baseline but falls when she tries to stand out of her wc or transfers to and from unsupervised. per mumtaz patient is in need of more supports and would like her to go to [facility] in [facility] a STR placement in [facility] in [facility] for which refs were made per her request c the exception of [facility] and [facility], which mumtaz does not like. this will also buy the family time to make arrangements at the [facility]. PT did see patient and recommend LTC, not STR. we will see how this plays in getting pt an approp. bed. lastly, covid vaccination dates for patient are july 03 and august 03, . the patient son is the HCP which they have a copy of and have been asked to bring in. dc plan is to snf. cm to cont. to follow.
--- NOTE | 2021-03-27 14:51 | PC.NURSE ---
Pt status is now case management as she resides in assisted living with memory impairment unit. Pt requiring more assistance d/t frequent falls. Pt is alert but disoriented, pleasantly confused. Tolerated lunch well, cleaned and repositioned. Denies pain or discomfort. appears comfortable
[2021-03-27] MEDS: cefTRIAXone sodium 1 GM in 0.9 % Sodium Chloride 50 ML IV (15:35)
[2021-03-27 15:40] LABS: Lactic Acid 1.3 mmol/L (0.5-2.0)
[2021-03-27 15:48] LABS: COVID-19 Test Negative (Negative)
--- NOTE | 2021-03-27 19:27 | PC.NURSE ---
Pt resting on stretcher in NAD, breathing with ease on RA. Pt aaox1, oriented to self only. Pt pleasant and conversational, denies pain/discomfort. Pt eating dinner at this time. Pt stretcher is in lowest locked position, rails raised, call rizvi within reach. Pt without need for incontinence care at this time. Red fall prevention socks, red wrist band and red star posted outside of room for fall precautions.
--- NOTE | 2021-03-27 21:20 | PC.NURSE ---
Pt transferred to without incidence. Incontinence care provided
--- NOTE | 2021-03-27 23:24 | PC.NURSE ---
Pt found to be incontinent of urine. Inc care provided. VS assessed, stable. Pt resting on HB in NAD, breathing with ease on RA, denies pain/discomfort. Bed in low locked position, rails raised, bed alarm active and audible. Fall precautions remain in place.
--- NOTE | 2021-03-27 23:34 | PC.NURSE ---
This RN performed Med Rec. Dr Lomeli made aware to continue home meds.
--- NOTE | 2021-03-28 03:06 | PC.NURSE ---
Pt resting on HB in NAD, breathing with ease on RA. Pt denies pain/discomfort. Pt without need for incontinence care at this time. Bed remains in lowest locked position, rails raised, call rizvi within reach.
[2021-03-28 06:00] VITALS: BP 144/81; PULSE 74; RESP 16; TEMP 36.8; O2SAT 94
--- NOTE | 2021-03-28 06:20 | PC.NURSE ---
Incontinence care provided. Pt denies pain/discomfort. Pt VSS. Pt provided water, drank about 4oz. HB in lowest locked position, rails raised, bed alarm active and audible.
--- NOTE | 2021-03-28 09:13 | MHC.CM.ED ---
[facility] has offered a bed for monday. i spoke c pt's daughter, mumtaz , who has accepted the bed offer. dc plan is to [facility] tomorrow. gigi and rn in the e.d. are aware of the dc plan. cm to cont. to follow.
--- NOTE | 2021-03-28 09:27 | PC.NURSE ---
Spoke with case management. Plan for pt to go to [facility] tomorrow. Pt's family was made aware.
[2021-03-28 10:01] VITALS: BP 151/71; PULSE 74; RESP 17; TEMP 36.8; O2SAT 99
--- NOTE | 2021-03-28 10:02 | PC.NURSE ---
Pt cleaned of urine. Full bath and bed change provided. VSS
[2021-03-28] MEDS: Memantine HCl 10 MG TABLET PO ×2 (10:07→20:55)
[2021-03-28] MEDS: Multivitamin TABLET 1 TAB PO (10:09)
[2021-03-28] MEDS: Cholecalciferol (Vitamin D3) 25 MCG TABLET PO (10:09)
[2021-03-28] MEDS: Famotidine 20 MG TABLET 40 MG PO (10:11)
[2021-03-28] MEDS: Divalproex Sodium Sprinkles 125 MG CAP.DR.SPR PO ×2 (10:11→20:54)
--- NOTE | 2021-03-28 11:25 | PC.NURSE ---
patient alert to self, positioned to pt comfort, fall precautions in place, no c/o pain or discomfort, will continue to monitor
[2021-03-28 14:00] VITALS: BP 132/76; PULSE 76; RESP 18; TEMP 36.8; O2SAT 99
--- NOTE | 2021-03-28 14:30 | PC.NURSE ---
pt currently sleeping, fall precautions in place, will continue to monitor.
--- NOTE | 2021-03-28 16:23 | PC.NURSE ---
patient awake/confused alert to self only, pt attempting to get oob- noted patient to be incontinent, changed linens and patient settled, tv on, warm blanket given, will continue to monitor.
--- NOTE | 2021-03-28 18:52 | PC.NURSE ---
patient awake and alert to self, tech at bedside feeding patient dinner, fall precautions in place, will continue to monitor
[2021-03-28] MEDS: QUEtiapine Fumarate 25 MG TABLET 12.5 MG PO (20:55)
--- NOTE | 2021-03-28 20:56 | PC.NURSE ---
Addendum entered by Felipa Weber RN 03/28/21 20:57: pt incontinent of urine, zaina changed Original Note: patient awake, confused, no c/o pain or discomfort, pt medicated per order, will continue to monitor.
[2021-03-28 22:00] VITALS: BP 122/74; PULSE 74; RESP 17; TEMP 36.6; O2SAT 96
--- NOTE | 2021-03-28 23:51 | PC.NURSE ---
pt repositioned in bed. pt clean and dry at this time. Will continue to monitor.
--- NOTE | 2021-03-29 00:40 | PC.NURSE ---
PT RESPOSITIONED, CLEANED AND LINENS CHANGED.
[2021-03-29 04:21] VITALS: RESP 12
[2021-03-29 06:03] VITALS: BP 130/58; PULSE 67; RESP 12; O2SAT 99
--- NOTE | 2021-03-29 06:45 | PC.NURSE ---
pt sleeping at this time. Complete bed change an Polly care.
[2021-03-29 07:41] VITALS: BP 110/60; PULSE 66; RESP 16; TEMP 36.6; O2SAT 99
--- NOTE | 2021-03-29 07:54 | PC.NURSE ---
pt is sleeping resp even and unlabored. per shift mechanic rn (nba) to to be dc to [facility] today.
--- NOTE | 2021-03-29 08:05 | MHC.CM.PN ---
CM UPDATED [facility] REFERRAL W/COVID RESULTS AND REQUESTING TRANSFER TIME, AWAITING RESPONSE, CM WILL CONT TO FOLLOW.
--- NOTE | 2021-03-29 08:53 | MHC.CM.PN ---
PT DISCHARGING TO [facility] AT 11AM, ACTION FOR BLS TRANSPORT. CM ATTEMTPED TO CALL BRIAN VARGAS AT 8:51AM [phone], MESSAGE LEFT W/TXFR TIME.
[2021-03-29] MEDS: Divalproex Sodium Sprinkles 125 MG CAP.DR.SPR PO (09:48)
[2021-03-29] MEDS: Memantine HCl 10 MG TABLET PO (09:48)
[2021-03-29] MEDS: Famotidine 20 MG TABLET 40 MG PO (09:48)
[2021-03-29] MEDS: Cholecalciferol (Vitamin D3) 25 MCG TABLET PO (09:49)
[2021-03-29] MEDS: Multivitamin TABLET 1 TAB PO (09:49)
[2021-03-29 09:54] VITALS: BP 113/70; PULSE 84; RESP 16; TEMP 36.3; O2SAT 98
[2021-03-29 10:00] VITALS: BP 120/68; BP 129/68; PULSE 76; PULSE 79; RESP 16; RESP 18; TEMP 36.8; O2SAT 98; O2SAT 99
--- NOTE | 2021-03-29 11:19 | PC.NURSE ---
nurse to nurse given to usman Kuorn) at [facility] ([phone]). pt departed via ambulance to facility.
== END 2021-03-29 11:20 | disposition skilled nursing facility (03) ==
PROVIDERS: Emergency Provider Emergency Medicine Emergency Medical Services; PCP Internal Medicine
DX: N39.0 Urinary tract infection, site not specified (principal); F03.90 Unspecified dementia, unspecified severity, without behavioral disturbance, psychotic disturbance, mood disturbance, and anxiety; M54.2 Cervicalgia; Z79.899 Other long term (current) drug therapy; Z20.822 Contact with and (suspected) exposure to COVID-19
CPT/HCPCS: 36415; 70450; 71045; 72125; 80048; 81001; 83605; 84484; 85025; 87040; 87086; 87635; 93005; 96365; 97162; 99285; J0696